=== PATIENT | female | born 1995 | race Hispanic/Latino ===

== ENCOUNTER → 2022-10-25 | Outpatient (CLI) | payer SELFPAY | END | disposition home or self-care (01) | LOC: LAB 07:59 | PROVIDERS: ATTEND Hospitalist | DX: Z20.822 Contact with and (suspected) exposure to COVID-19 (principal) | CPT/HCPCS: 87426 ==

== ENCOUNTER 2023-03-29 06:20 | Emergency (ER) | payer OTHER, SELFPAY ==
[~2023-03-29] VITALS: Ht 160 cm; Wt 68.9 kg
[2023-03-29] MEDS ORDERED: CIPR7.5D OT (07:34)
[2023-03-29] MEDS ORDERED: LIDOCAINE HCL 1% 20 ML VIAL INJ STA (07:36)
[2023-03-29 08:35] VITALS: BP 110/75
== END 2023-03-29 08:41 | disposition home or self-care (01) ==
LOC: EDH 06:20
DX: H60.91 Unspecified otitis externa, right ear (principal)

== ENCOUNTER 2025-05-27 13:59 | Emergency (ER) | payer OTHER ==
[~2025-05-27] VITALS: Ht 154.9 cm; Wt 64.9 kg
[~2025-05-27 13:59] MED LIST: CIPR7.5D OT
[2025-05-27 14:01] VITALS: BP 106/73; PULSE 73; RESP 18; TEMP 98.6; O2SAT 99
--- NOTE | 2025-05-27 14:30 | NUR ---
POISON CONTROL CALLED, RECOMMEND IRRIGATION, CASE #[id number]
--- NOTE | 2025-05-27 14:35 | NUR ---
IRRIGATION DONE BEFORE ARRIVAL TO ER
--- NOTE | 2025-05-27 14:40 | ERN ---
ED Note History of Present Illness Stated Complaint: RT EYE PAIN Chief Complaint: Eye Problems Time Seen by MD: 14:05 Time Seen by Midlevel: 14:06 Dictation: 29 year old female with no past medical history coming in with complaints of right eye irritation. Patient had drops of the sending cloth that we use of the hospital fall into her eye. Patient washed her eye out for 10 minutes prior to coming into the emergency room. Allergies: Coded Allergies: No Known Allergies (Unverified Allergy, Unknown, 03/29/23) Home Meds Active Scripts Ciprofloxacin HCl/Dexameth (Ciprodex Otic Suspension) 7.5 Ml Drops.susp, 7.5 ML OT 5X/DAY for 7 Days, #60 DROP Prov:STELLA WARD MD 03/29/23 Past Medical History Past Medical History: No Pertinent History Surgical History: None Review of System Dictation Constitutional: Negative for fever,chills, and weight loss Eyes: Negative for injury, pain, right eye redness, no change in vision, no foreign body sensation ENT: Negative for injury,pain or swelling Cardiovascular: Negative for chest pain, palpitations, and edema Respiratory: Negative for shortness of breath, cough, and wheezing, Abdomen/GI: Negative for abdominal pain, nausea, vomiting, diarrhea, and constipation Back: Negative for injury and pain : Negative for injury, bleeding and discharge MS/Extremity: Negative for injury and deformity Skin: Negative for rash, and discoloration Neuro: Negative for headache, weakness, numbness, tingling, and seizure Psych: Negative for suicide ideation, homicidal ideation, and hallucinations Review of Systems: was completed Initial Vital Sign VS Vital Signs Date Time Temp Pulse Resp B/P (MAP) Pulse Ox O2 Delivery O2 Flow Rate FiO2 05/27/25 14:01 98.6 73 18 106/73 99 Room Air* 0 21 Physical Exam Dictation General: awake, alert, NAD Head/Face: Normocephalic, atraumatic Eyes: PERRL, EOMI, vision at baseline, no discharge, conjunctivae mildly erythemic ENT: oral cavity clear, TMs clear, no signs of infection Neck: Trachea midline, supple, no nuchal rigidity Cardiovascular: RRR, normal S1/S2, No MRGs, no JVD Respiratory: CTAB, no respiratory distress, No rales or wheezes Abdomen: Soft, non-tender, non-distended, normal bowel sounds, no guarding or rebound. Skin: Warm, dry, normal turgor, no rash MS/Extremity: Pulses equal, no cyanosis, neurovascular intact, FROM Neuro: COAx4, GCS 15, strength 5/5, CN 2-12 intact, normal cerebellar exam, normal gait, Psych: Normal behavior, mood, and affect normal ED Course ED Course Orders Procedure Category Date Status Time *Nursing CPOE 05/27/25 Transmitted Communication: 14:27 Tetracaine Hcl PHA 05/27/25 Complete (Pontocaine 0.5% 14:43 Fluorescein Sodium PHA 05/27/25 In Process (Cvzvy-Q-Zaihw At) 15:00 Current Medications Medications (Trade) Dose Ordered Sig/Falguni Route PRN Reason Start Time Stop Time Status Last Admin Dose Admin Fluorescein Sodium (Zehhf-K-Bapxz At) 1 strip ONCE ONCE OP 05/27/25 15:00 05/27/25 15:01 Tetracaine HCl (Pontocaine 0.5% Ophth Soln) 1 OR 2 DROPS ONCE STAT OP 05/27/25 14:43 05/27/25 14:45 DC Vital Signs Date Time Temp Pulse Resp B/P (MAP) Pulse Ox O2 Delivery O2 Flow Rate FiO2 05/27/25 14:01 98.6 73 18 106/73 99 05/27/25 14:01 98.6 73 18 106/73 99 Room Air* 0 21 Medical Decision Making MDM MDM:29 year old female with no past medical history coming in with complaints of right eye irritation. Denies any contact use. Patient had drops of the sending cloth that we use of the hospital fall into her eye. Patient washed her eye out for 10 minutes prior to coming into the emergency room. Poison control called by primary nurse. Recommendation was to wash out the eye which patient had already done. Patient will be discharged to follow up outpatient with her PCP. Educated on when to return back to the emergency room. Patient verbalized understanding, answered all questions. Before discharge and when I went to go talk to patient patient is concerned L1 it in a exam. Discussed with the patient that you do a eye exam with the fluorescein stain still look for any corneal abrasions. Ordered tetracaine and fluorescein strip. After a few minutes the primary nurse came to let me know patient is now concerns anymore for any scratches or any corneal abrasions and decided not to have the fluorescein exam done. Differential diagnosis: Keratitis, chemical burn, Rationale: Tests considered and ordered secondary to shared decision making include: Previous outside records reviewed: Old ER visits. Risk of complication and/or morbidity or mortality of patient management: None Medications-Per medication reconciliation Need for hospitalization: Patient does not meet criteria for hospitalization. Need for emergency major/minor surgery: No There are no social concerns with this patient. Prescription drug management Prescriptions will include symptomatic care Patient's prior external medical records from other ER visits were reviewed by me as indicated. Prior testing and results from previous visits were reviewed. Prior tests were taken into account with medical decision making and resource utilization, independent historian/historians were used to obtain complete medical history. I independently interpreted the test that were performed, results were reviewed by me and considered findings on radiology if ordered. Medical management and examination interpretation discussions were had by me wit h other qualified healthcare professionals as indicated for the patient's care. DX & DISP Disposition: Discharge Departure Impression: Primary Impression: Chemical exposure of eye Condition: Stable Additional Instructions: Follow up with your PCP in 1-2 days. Return to the hospital if you notice any foreign body sensation, blurry vision, or extremity pain. Referrals: SELF,REFERRAL (PCP) Time of Disposition: 14:40 I have reviewed the case, and I agree with, Diagnosis and Plan EVERARDO WISE NP May 27, 2025 14:40
[2025-05-27] MEDS: FLUORESCEIN SODIUM 1 STRIP STRIP OP ONE (14:54)
[2025-05-27] MEDS: TETRACAINE HCL 0.5% 4 ML OPHTH SOLN OP STA (14:54)
== END 2025-05-27 14:57 | disposition home or self-care (01) ==
LOC: EDH 13:59
DX: H57.11 Ocular pain, right eye (principal); Z77.098 Contact with and (suspected) exposure to other hazardous, chiefly nonmedicinal, chemicals; Z79.899 Other long term (current) drug therapy
CPT/HCPCS: 99282